=== PATIENT | female | born 1990 | race American Indian/Alaskan Native ===

== ENCOUNTER 2016-08-01 14:17 | Emergency (ER) | payer OTHER ==
[2016-08-01] MEDS ORDERED: NORCO 5/325 PO ONE (16:52)
[2016-08-01] MEDS ORDERED: FLEXERIL PO ONE (16:52)
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
[2016-08-01 18:07] VITALS: BP 120/81
== END 2016-08-01 18:07 | disposition home or self-care (01) ==
LOC: ED 14:17
DX: S50.312A Abrasion of left elbow, initial encounter (principal); S80.212A Abrasion, left knee, initial encounter; S80.211A Abrasion, right knee, initial encounter; V49.49XA Driver injured in collision with other motor vehicles in traffic accident, initial encounter; Y93.9 Activity, unspecified; Y92.89 Other specified places as the place of occurrence of the external cause; Y99.9 Unspecified external cause status
CPT/HCPCS: 99282